=== PATIENT | male | born 1980 | race Caucasian/White ===

== ENCOUNTER 2017-07-31 14:55 | Emergency (ER) | payer SELFPAY ==
[~2017-07-31] VITALS: Ht 185.4 cm; Wt 102.1 kg
[2017-07-31 15:03] VITALS: BP 159/96; PULSE 106; RESP 16; TEMP 98; O2SAT 96
[2017-07-31] MEDS ORDERED: TRAZ50TA12 PO (15:15)
[2017-07-31] MEDS ORDERED: NEXI20CA PO (15:15)
[2017-07-31] MEDS ORDERED: CLON.5 PO (15:15)
[2017-07-31] MEDS ORDERED: [UNRECOGNIZED DRUG - OTHER] (15:15)
[2017-07-31] MEDS ORDERED: LIDOCAINE 1%/EPINEPHrine 1:100,000 SOLN 20 ML VIAL INFIL ONE (15:45)
--- NOTE | 2017-07-31 16:14 | PD ---
HPI Chief Complaint: Laceration/Skin Injury Time Seen by Provider: 15:22 Travel History International Travel<30 days: No Contact w/Intl Traveler<30days: No Traveled to known affect area: No History of Present Illness HPI This is a 37-year-old male here with laceration to his left forearm. While at work large piece of tile fell cutting his left forearm. He denies paresthesia or weakness of the extremity. He is able to flex and extend the wrist and all fingers. Tetanus immunization is not up to date. Symptom severity is moderate. No aggravating or alleviating factors PFSH Past Medical History Anxiety: Yes GERD: Yes Medical other: Yes (SLEEP DISORDERS) Tetanus Vaccination: Unknown Influenza Vaccination: No Social History Alcohol Use: Yes (OCCASIONAL) Tobacco Use: Yes (OCCASIONAL TOBACCO, USUALLY "VAPES") Substance Use: No Allergies-Medications (Allergen,Severity, Reaction): Coded Allergies: No Known Allergies (Unverified , 07/31/17) Reported Meds & Prescriptions Reported Meds & Active Scripts Active Reported [Dioxapine] Trazodone (Trazodone HCl) 50 Mg Tab Unknown Dose PO HS Nexium (Esomeprazole DR) 20 Mg Capdr Unknown Dose PO DAILY Klonopin (Clonazepam) 0.5 Mg Tab Unknown Dose PO BID Review of Systems Except as stated in HPI: all other systems reviewed are Neg Physical Exam Narrative GENERAL: 37-year-old male who is well-appearing. SKIN: Warm and dry. 8 cm laceration to the left lateral forearm. No tendon or vascular injury. No foreign body. HEAD: Normocephalic. EYES: No injection or drainage. NECK: Supple MUSCULOSKELETAL: No cyanosis, or edema. Left upper extremity: The skin noted above. Patient is able to flex and extend the wrist and all digits. 2+ distal pulses. Normal sensation. Brisk cap refill. Data Data Last Documented VS Vital Signs Date Time Temp Pulse Resp B/P (MAP) Pulse Ox O2 Delivery O2 Flow Rate FiO2 07/31/17 15:03 98.0 106 16 159/96 (117) 96 Orders Orders Lidocai-Epi 1%-1:100,000 Inj (Xylocaine- (07/31/17 15:45) MDM Medical Decision Making Medical Screen Exam Complete: Yes Emergency Medical Condition: Yes Differential Diagnosis Laceration, tendon injury, vascular injury Narrative Course 37-year-old male here with laceration to the left forearm. No tendon or vascular injury. Suture repair performed. Patient tolerated procedure well. Tetanus immunization is updated. Procedures Procedure Narrative LACERATION LOCATION: Left forearm LENGTH: 8 CM NUMBER OF STITCHES/MARCI: 10 REPAIR: The area of the laceration was prepped with Betadine and sterilely draped. The laceration was infiltrated with 1% lidocaine. The wound was copiously irrigated and explored without evidence of foreign body, tendon injury or neurovascular injury. The wound was closed using 4-0 proline. This was a single layer repair. A sterile dressing was applied. The patient was advised to keep the dressing clean and dry. Patient tolerated the procedure well. Diagnosis Primary Impression: Laceration of left forearm Qualified Codes: S51.812A - Laceration without foreign body of left forearm, initial encounter Referrals: Primary Care Physician Additional Instructions: Do not submerge the wound in water. Sutures need to be removed in 7-10 days. Return if he developed new or worsening symptoms such as increased redness, pain , drainage from the site Disposition: 01 DISCHARGE HOME Condition: Stable Shelia Joyce Jul 31, 2017 16:14
[2017-07-31] MEDS ORDERED: TETANUS/DIPHTHERIA TOXOID ADULT 0.5 ML VIAL IM ONE (16:15)
== END 2017-07-31 16:26 | disposition home or self-care (01) ==
LOC: PHEFT 14:55
DX: S51.812A Laceration without foreign body of left forearm, initial encounter (principal); W26.8XXA Contact with other sharp object(s), not elsewhere classified, initial encounter; Y99.0 Civilian activity done for income or pay; Z23 Encounter for immunization
CPT/HCPCS: 12004; 90471; 90714

== ENCOUNTER 2017-08-18 15:10 | Emergency (ER) | payer BC ==
[~2017-08-18] VITALS: Ht 185.4 cm; Wt 105.4 kg
[~2017-08-18 15:10] MED LIST: CLON.5 PO; NEXI20CA PO; TRAZ50TA12 PO; [UNRECOGNIZED DRUG - OTHER]
[2017-08-18 15:42] VITALS: BP 121/58; PULSE 89; RESP 18; TEMP 98.7; O2SAT 97
--- NOTE | 2017-08-18 16:46 | PD ---
HPI Chief Complaint: Wound/Suture/Staple Re-Check Time Seen by Provider: 16:24 Travel History International Travel<30 days: No Contact w/Intl Traveler<30days: No Traveled to known affect area: No History of Present Illness HPI 37-year-old male that presents to the ED for evaluation of suture recheck. Per patient he had sutures done about 2 weeks ago from a laceration secondary to an injury with tile. He comes here to get the sutures removed. No other medical issues. States that he has been doing okay. No fevers, chills or sweats. PFSH Past Medical History Anxiety: Yes GERD: Yes Social History Alcohol Use: Yes (OCCASIONAL) Tobacco Use: Yes (OCCASIONAL TOBACCO, USUALLY "VAPES") Substance Use: No Allergies-Medications (Allergen,Severity, Reaction): Coded Allergies: No Known Allergies (Unverified , 08/18/17) Reported Meds & Prescriptions Reported Meds & Active Scripts Active Reported [Dioxapine] Trazodone (Trazodone HCl) 50 Mg Tab Unknown Dose PO HS Nexium (Esomeprazole DR) 20 Mg Capdr Unknown Dose PO DAILY Klonopin (Clonazepam) 0.5 Mg Tab Unknown Dose PO BID Review of Systems Except as stated in HPI: all other systems reviewed are Neg Physical Exam Narrative GENERAL: SKIN: Warm and dry. HEAD: Atraumatic. Normocephalic. EYES: Pupils equal and round. No scleral icterus. No injection or drainage. ENT: No nasal bleeding or discharge. Mucous membranes pink and moist. Tongue is midline. No blood deviation. NECK: Trachea midline. No JVD. CARDIOVASCULAR: Regular rate and rhythm. No murmurs, S3, S4. RESPIRATORY: No accessory muscle use. Clear to auscultation. Breath sounds equal bilaterally. GASTROINTESTINAL: Abdomen soft, non-tender, nondistended. Hepatic and splenic margins not palpable. MUSCULOSKELETAL: Extremities without clubbing, cyanosis, or edema. No obvious deformities. Full range of motion of the upper and lower extremities bilaterally. Patient has a superficial laceration to the left arm with 11 sutures noted. No sign of erythema. No sign of infection. NEUROLOGICAL: Awake and alert. No obvious cranial nerve deficits. Motor grossly within normal limits. Five out of 5 muscle strength in the arms and legs. Normal speech. PSYCHIATRIC: Appropriate mood and affect; insight and judgment normal. Data Data Last Documented VS Vital Signs Date Time Temp Pulse Resp B/P (MAP) Pulse Ox O2 Delivery O2 Flow Rate FiO2 08/18/17 15:42 98.7 89 18 121/58 (79) 97 Orders Orders Ed Discharge Order (08/18/17 16:43) MDM Medical Decision Making Medical Screen Exam Complete: Yes Emergency Medical Condition: Yes Medical Record Reviewed: Yes Differential Diagnosis Suture removal versus laceration versus normal exam Narrative Course 37-year-old male that presents to the ED for evaluation of suture removal. After explained procedure to the patient and he agreed to it all 11 sutures were removed by me using sterile removal kit. Patient alert procedure well. Wound care was endorsed. Follow with PCP. See ED worsening symptoms. Diagnosis Primary Impression: Visit for suture removal Patient Instructions: General Instructions Additional Instructions: Wound care as needed. Follow with PCP. See ED worsening symptoms. Med/Other Pt SpecificInfo: No Change to Meds Disposition: 01 DISCHARGE HOME Condition: Stable Kieran Fofana Aug 18, 2017 16:46
== END 2017-08-18 17:00 | disposition home or self-care (01) ==
LOC: PHEFT 15:10
DX: Z48.02 Encounter for removal of sutures (principal)
CPT/HCPCS: 99281